=== PATIENT | female | born 1985 | race Caucasian/White ===

== ENCOUNTER 2023-10-10 08:55 | Day surgery (SDC) | payer OTHER ==
[~2023-10-10] VITALS: Ht 167.6 cm; Wt 113.0 kg
[~2023-10-10 08:55] MED LIST: CYCLOBENZAPRINE10 MG PO; NORCO 5-325 TA1 EACH PO
[2023-10-10 09:38] LABS: BILIRUBIN, URINE NEGATIVE (negative); BLOOD/HGB, URINE NEGATIVE (Negative); KETONE, URINE NEGATIVE (Negative); LEUK ESTERASE, URINE TRACE (negative); NITRITE, URINE NEGATIVE (negative)
[2023-10-10 09:39] LABS: BASOPHILS 0.3 % (0-2); EOSINOPHILS 2.8 % (0-6); HEMATOCRIT 42.1 % (35.0-50.0); LYMPHOCYTES 20.2 % (24-44); MCH 30.4 (27-36); MCHC 33.3 g/dl (30-36); MCV 91.2 fl (81-99); MONOCYTES 4.3 % (0-12); NEUTROPHILS 72.4 % (39-80); PLATELET COUNT 445 K/uL (140-440); RBC 4.62 M/ul (4.3-5.7); RDW 13.3 (10.5-15.0)
[2023-10-10 10:01] LABS: ALBUMIN 3.5 g/dL (3.4-5.0); ALBUMIN/GLOBULIN RATIO 0.9 (1.1-2.4); ANION GAP 14.1 (7-21); BILIRUBIN, TOTAL 0.7 ng/dL (0.2-1.0); BUN/CREATININE RATIO 8.24 (6.0-28.6); CALCIUM 8.9 mg/dL (8.5-10.1); CREATININE, SERUM 0.97 mg/dL (0.55-1.02); POTASSIUM 4.1 mmol/L (3.5-5.1); PROTEIN, TOTAL 7.4 g/dL (6.4-8.2)
[2023-10-10 10:08] LABS: BACTERIA, URINE RARE /hpf (negative); CASTS, URINE NONE SEEN \\lpf; COLLECTION TYPE, URINE CLEAN CATCH; CRYSTALS, URINE NONE SEEN (0-1+); EPITHELIAL CELLS, URINE SQUAMOUS 1+ /lpf (0-1+); RED BLOOD CELLS, URINE 0-1 /hpf (0-5); REFLEX CULTURE, URINE No (No)
[2023-10-10 13:36] VITALS: BP 113/60
--- NOTE | 2023-10-10 13:56 | NUR ---
ADMITTED FROM [facility] PATENT ON MAITAINENCE PER PUMP. REVIEWED PROCEDURE FOR O R. STATES OK. AT BS WILL LEAVE WHEN SHE GOES TO O R.
--- NOTE | 2023-10-10 15:04 | NUR ---
1442- PT UP AND AMBULATED TO THE RESTROOM. TOLERATED WELL. PT REPORTS SHE IS PAINFUL. EDUCATED THAT ANETHESIA WOULD BE NOTIFIED. 1454- ANESTHESIA NOTIFIED OF PT'S PAIN. 1503- ANESTHESIA IN THE ROOM TO TALK WITH THE PT.
--- NOTE | 2023-10-10 15:48 | NUR ---
CHECKED PATIENT. PATIENT STATES PAIN IMPROVED. NO NEEDS AT THIS TIME. CALL LIGHT WITHIN REACH.
--- NOTE | 2023-10-10 16:01 | NUR ---
PT UPDATED ON WAIT TIME UNTIL SURGERY. PT AGREEABLE WITH THIS. CALL LIGHT PROVIDED AND TELEVISION TURNED ON. PT HAS NO FURTHER REQUESTS AT THIS TIME.
--- NOTE | 2023-10-10 17:07 | NUR ---
PT AND PT'S FAMILY UPDATED ON PLAN OF CARE AND WAIT UNTIL SURGERY. BOTH PARTIES UNDERSTANDING AND THANKFUL FOR THE UPDATE.
[2023-10-10 17:35] VITALS: BP 123/74
--- NOTE | 2023-10-10 17:35 | NUR ---
REPORT RECEIVED FROM PHUONG WHITE RN. PT SITTING UP IN BED. PT REPORTING NAUSEA AND PAIN. AWAITING FOR DR. ESQUIVEL TO PLACE ORDERS. PT DENIES ANY NEEDS AT THIS TIME. CALL LIGHT IN REACH.
--- NOTE | 2023-10-10 17:52 | NUR ---
173- REPORT GIVEN TO LIZZY LEY RN. ALL QUESTIONS ANSWERED. EDUCATED THE PT HAS RECEIVED HEPARIN, PEPCID, AND OTHER MEDICATIONS PROVIDED THROUGHOUT HER STAY. PT ABLE TO STAND AND AMBULATE INTO THE HOSPITAL BED. PT REPORTS NO DIZZINESS WITH THIS. PT PROVIDED CALL LIGHT, BED IN THE LOWEST POSITION, BED RAILS UP X2, BED PLUGGED IN. PT'S BELONGINGS ARE HOME WITH THE PT'S . 174- DR. ESQUIVEL CONTACTED FOR ORDERS THE PT IS REPORTING SOME NAUSEA AND PAIN FROM MOVEMENT INTO THE HOSPITAL BED. DR. ESQUIVEL STATES HE WILL PUT ORDERS IN. HARVEST WORKER AWARE.
--- NOTE | 2023-10-10 18:08 | NUR ---
IN TO ROUND ON PT. PT SITTING UP IN BED. PT REPORTING NAUSEA. HOT PACK PROVIDED TO ABD PAIN. LIGHTS TURNED DOWN FOR COMFORT. PT DENIES ANY OTHER NEEDS AT THIS TIME. CALL LIGHT IN REACH.
--- NOTE | 2023-10-10 18:26 | NUR ---
IN TO ADMINISTER PRN NAUSEA MEDICATION AND PRN PAIN MEDICATION. PT REPORTING PAIN 3/10 AT UMBILICUS. ASSESSMENT COMPLETE. LUNG SOUNDS CLEAR. BOWEL TONES ACTIVE. PT REPORTS ABD TENDERNESS WITH PALPATION AT UMBILICUS. COOL CLOTH PROVIDED. PT DENIES ANY OTHER NEEDS AT THIS TIME. CALL LIGHT IN REACH.
--- NOTE | 2023-10-10 18:53 | NUR ---
SURGICAL NURSE HERE TO TAKE PT FOR PROCEDURE.
--- NOTE | 2023-10-10 19:35 | NUR ---
SHIFT REPORT RECEIVED FROM DAYSWAKARMA BALL, PER REPORT, pt RECENTLY TO OR FOR SURGERY. AWAITING pt's ARRIVAL BACK FROM PACU.
[2023-10-10] MEDS ORDERED: TYLENOL EXTRA500 MG PO (20:08)
[2023-10-10] MEDS ORDERED: MOTRIN IB200 MG PO (20:08)
[2023-10-10] MEDS ORDERED: PERCOCET 7.5-31 EACH PO (20:09)
--- NOTE | 2023-10-10 20:15 | NUR ---
10/10/23 2015 Gallwoay,Monika Santo 2006: PATIENT MEDICATED FOR PAIN WITH IV FENTANYL. 2012: DR. ESQUIVEL AT BEDSIDE TALKING WITH PATIENT.
--- NOTE | 2023-10-10 20:38 | NUR ---
pT BACK FROM PACU, PAIN TOLERABLE AT THIS TIME. BEDSIDE REPORT RECEIVED FROM COST COORDINATOR NITZA. pt AWAKE AND RESTING IN BED, GAG REFLEX NOTED. pt PROVIDED WITH CLEAR LIQUIDS AND JELLO-pt TOLERATING WELL. DENIES NAUSEA. ABD INCISION DRESSING C/D/I. IV SITE WNL, FLUSHES EASILY AND SALINE LOCKED. VSS, pt REMAINS ON ROOM AIR. SIG OTHER IN ROOM. NO ADDITIONAL NEEDS OR CONCERNS NOTED, POC DISCUSSED. pt VERBALIZES EAGERNESS TO GO HOME.
[2023-10-10 20:46] VITALS: BP 112/65
--- NOTE | 2023-10-10 21:33 | NUR ---
pt UP AND VOIDED 100MLS DARK YELLOW URINE, STEADY ON FEET AND BACK IN BED. ONE PERCOCET GIVEN FOR REPORTED 4/10 ABD PAIN NEAR INCISION. pT TOLERATING CLEAR LIQUID DIET, ADVANCED TO CRACKERS. DENIES NAUSEA. CALL LIGHT INR EACH.
[2023-10-10 21:42] VITALS: BP 96/82
--- NOTE | 2023-10-10 21:43 | NUR ---
UPDATE PROVIDED TO DR ESQUIVEL PER TELEPHONE, AWARE OF pt VOIDING 100MLS URINE AND PAIN TOLERABLE AND EATING/DRINKING W/O CONCERNS. pt HAS PRESCRIPTION FOR PAIN MEDICATION ON CHART-DISCUSSED POSSIBLE NEED FOR HOME PACK, STATES pt CAN USE OTC PAIN MEDICATION (TYLENOL/MOTRIN) DURING THE NIGHT pt WAS RECENTLY GIVEN A PERCOCET AND CAN HAVE THE PRESCRIPTION FILLED AT THE PHARMACY IN THE MORNING. WILL CONTINUE TO MONITOR, STATISTICS PROFESSORAIDE MACEDO PREPARING TO DISCHARGE pt.
[2023-10-10 22:13] VITALS: BP 114/78
--- NOTE | 2023-10-10 22:26 | NUR ---
DISCHARGE INSTRUCTIONS GIVEN TO PT, VS COMPLETED, IV DC'D INTACT. PERSCRIPTION GIVEN WELL. INSTRUCTED TO CALL DR ESQUIVEL OFFICE IN MORNING, SHE QUESTIONED A WORK RELEASE PAPER, ADVISED TO ASK OFFICE WELL. CURRENTLY BEING WHEELED OUTSIDE IN WHEELCHAIR, MALE WALKING BESIDE HERE, WIRE BASKET MAKER PUSHING CHAIR.
--- NOTE | 2023-10-11 18:06 | OR ---
[facility] [address], [place] [address] Signed DATE OF OPERATION: 10/10/2023 SURGEON: Matthew Esquivel MD PREOPERATIVE DIAGNOSES: 1. Incarcerated symptomatic supraumbilical hernia. 2. Morbid obesity. POSTOPERATIVE DIAGNOSES: 1. Incarcerated symptomatic supraumbilical hernia. 2. Morbid obesity. PROCEDURE: 1. Repair of incarcerated supraumbilical hernia fascial defect 2 cm. 2. Resection of portion of omentum (incarcerated ischemic and nonreducible). ANESTHESIA: General endotracheal, Cheri Tyshawn, EXECUTIVE ASSOCIATE and local 10 mL of 0.25% Marcaine with epinephrine. INDICATION: This 38-year-old morbidly obese white woman presented to the emergency room after two days of increasing abdominal pain, which was not well-localized initially. Evaluation by Dr. Anjel Barth in the emergency room included an ultrasound of the gallbladder. The gallbladder was found to be normal, however, inspection with the ultrasound confirmed a subcutaneous mass consistent with incarcerated umbilical hernia or supraumbilical hernia. The defect was considered to be slightly less than 2 cm. Clinical examination then affirmed marked tenderness at the supraumbilical area consistent with incarcerated hernia with probable properitoneal fat. The patient had nausea and vomiting previously and extreme pain and tenderness at this time. She has been fluid resuscitated, given intravenous antibiotic Ancef and is now to undergo repair of the hernia, possibly to include implantation of mesh. The risk of bleeding, infection, recurrence and so forth were reviewed in detail. She understands and wished to proceed. FINDINGS: Indeed there was incarceration of omentum. There was no evidence of hollow viscus incarceration. The fascial defect was about 2 cm. The hernia sac was excised revealing ischemic, so not infarcted omentum. It was vascular and friable and could not be Electronically Signed By: MATTHEW ESQUIVEL MD 10/11/23 1806 PATIENT NAME: ENDY BILLY OPERATIVE REPORT DATE OF : 89 REPORT #: [id number] PHYSICIAN: MATTHEW ESQUIVEL MD PCP: SARMAD HOLDEN PA-C REPORT IS CONFIDENTIAL AND NOT TO BE RELEASED WITHOUT AUTHORIZATION [facility] [address], [place] [address] Signed reduced effectively and on that basis, portion of omentum was excised. The fascia that remains was reasonably mena. Mesh implantation was deemed inadvisable. Primary closure transversely was undertaken with 2-0 Prolene suture in a vertical mattress configuration. DESCRIPTION OF PROCEDURE: The patient was brought to the operating room, given a general endotracheal anesthetic. Preoperative antibiotic Ancef was given. Sequential compression device stockings used and heparin subcutaneously administered. The abdomen was prepared with a chlorhexidine solution. As she does have an underlying history of hidradenitis suppurativa with a few small boil like lesions in the lower abdomen (not active, but burned out), an Ioban dressing was additionally applied. A supraumbilical incision was made and dissection carried through the skin and dermis with a 15 blade. Further dissection was undertaken with electrocautery. The edematous subcutaneous fatty tissue was noted. A hernia was freed from the surrounding soft tissue ultimately identifying the fascial defect, which was at or above the umbilicus proper. Freeing of the hernia sac from the surrounding fascia was undertaken with electrocautery. The tissue was friable. The hernia sac was incised revealing the contents, which we which was proven to be omentum without sign of hollow viscus. Attempts at reduction of the omentum were unsuccessful and on that basis, sequential application of hemostats to the root of the incarcerated omentum was undertaken amputating the omentum and passed for pathology. The pedicles were then secured with 2-0 silk ties. This allowed for complete evaluation of the fascial defect, which was about 2 cm slightly left possibly. It was deemed most advisable to simply close the fascia as it was mena rather than implant Prolene mesh, particularly under the circumstances of her inflammation and other factors. The fascia was reapproximated transversely with interrupted 2-0 Prolene suture in a vertical mattress configuration. Good closure of the wound was undertaken. A 10 mL of 0.25% Marcaine with epinephrine was injected locally. Irrigation was undertaken in Laurel's layer reapproximated with interrupted 2-0 Vicryl and the skin closed with a running subcuticular 3-0 Vicryl. Steri-Strips were applied as was an Acticoat dressing. The patient was ultimately extubated and transferred to the recovery room in good condition having suffered no known complications. Sponge, needle, and instrument counts reported as correct x3. Matthew Esquivel MD /ROSIOL /[id number] Electronically Signed By: MATTHEW ESQUIVEL MD 10/11/23 1806 PATIENT NAME: ENDY BILLY OPERATIVE REPORT DATE OF : 89 REPORT #: [id number] PHYSICIAN: MATTHEW ESQUIVEL MD PCP: SARMAD HOLDEN PA-C REPORT IS CONFIDENTIAL AND NOT TO BE RELEASED WITHOUT AUTHORIZATION [address] [place] [address] Signed cc: TAMIE Daniel MD Copies: SARMAD HOLDEN PA-C, WILLIAM S MD ~ Electronically Signed By: MATTHEW ESQUIVEL MD 10/11/23 1806 PATIENT NAME: ENDY BILLY OPERATIVE REPORT DATE OF : 89 REPORT #: [id number] PHYSICIAN: MATTHEW ESQUIVEL MD PCP: SARMAD HOLDEN PA-C REPORT IS CONFIDENTIAL AND NOT TO BE RELEASED WITHOUT AUTHORIZATION
--- NOTE | 2023-10-11 18:06 | HP ---
[facility] [address] [place], [place] [address] Signed ADMISSION DATE: 10/10/2023 REASON FOR ADMISSION: Incarcerated symptomatic umbilical hernia. HISTORY OF PRESENT ILLNESS: This morbidly obese 38-year-old white woman has had at least two days of nausea, vomiting, and significant abdominal pain. She was evaluated by Dr. Hargrove and found to have vague abdominal tenderness and findings unclear as to the source of the problem. On that basis, an abdominal ultrasound was performed which showed no evidence of gallbladder problem, specifically no cholelithiasis or cholecystitis, a mildly enlarged liver and a small fat containing abdominal hernia superior to the umbilicus. Re-examination confirmed this to be the most maximally tender aspect of the abdomen. There is a small amount of fluid within the hernia. The defect of the abdominal wall was approximately 1.4 cm in diameter. The abnormalities found to be completely unreducible. PAST MEDICAL HISTORY: Notable for at age 17, but no other operative interventions have been undertaken. Other medical problems include obesity. She takes no medications on a routine basis nor does she have allergies. 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 She has one daughter 12 years of age and her attends to her at this time. They live in [place]. REVIEW OF SYSTEMS: She denies any shortness of breath or chest pain. She has had no dysphagia or dysuria. Denies any hematemesis or blood per rectum, but she has had a fair amount of nausea and vomiting. PHYSICAL EXAMINATION: GENERAL: This is a pleasant white woman who looks to be in no acute distress. HEENT: Mucous membranes are slightly dry. NECK: Trachea is midline. CHEST: Clear. HEART: Regular without murmur. ABDOMEN: Quite obese, but soft. There is marked tenderness at the supraumbilical area and a small mass is noted which is nonreducible. EXTREMITIES: Show no clubbing, cyanosis, or edema. Electronically Signed By: MATTHEW ESQUIVEL MD 10/11/23 1806 PATIENT NAME: ENDY BILLY HISTORY AND PHYSICAL DATE OF : 89 REPORT #: [id number] PHYSICIAN: MATTHEW ESQUIVEL MD PCP: SARMAD HOLDEN PA-C REPORT IS CONFIDENTIAL AND NOT TO BE RELEASED WITHOUT AUTHORIZATION [facility] [address] [place], [place] [address] Signed ASSESSMENT: The patient has an incarcerated supraumbilical hernia with incarcerated omental fat, most likely. This is very tender and has been going on for several days. She has had nausea and vomiting associated with this. Notably, she has had no oral intake for at least 48 hours. She has a Hep-Lock in place and IV fluid will be initiated. I have recommended repair at this time. This would include reduction of the hernia, possibly resection of the incarcerated omental fat if nonviable or reduction of hollow viscus if that is the finding. She may require implantation of Prolene mesh. Notably, she does have an underlying diagnosis of hidradenitis suppurativa, which has affected her axilla, inframammary creases and perineum but shows no sign of abnormality in the area of the umbilicus itself. She does have a few excoriations of skin on the lower abdominal wall. The risk of bleeding, infection, need for implantation of mesh, recurrence, and other unforeseen complications was reviewed with her in detail. She understands and wished to proceed. PLAN: We will plan to proceed with operation today and likely she will be able to be discharged today as well. Matthew Esquivel MD /ROSIOL /[id number] cc: TAMIE Daniel MD Copies: SARMAD HOLDEN PA-C Electronically Signed By: MATTHEW ESQUIVEL MD 10/11/23 1806 PATIENT NAME: ENDY BILLY HISTORY AND PHYSICAL DATE OF : 89 REPORT #: [id number] PHYSICIAN: MATTHEW ESQUIVEL MD PCP: SARMAD HOLDEN PA-C REPORT IS CONFIDENTIAL AND NOT TO BE RELEASED WITHOUT AUTHORIZATION [facility] [address] [place] [id number] Signed VALERY HARGROVE MD ~ Electronically Signed By: MATTHEW ESQUIVEL MD 10/11/23 1806 PATIENT NAME: ENDY BILLY HISTORY AND PHYSICAL DATE OF : 89 REPORT #: [id number] PHYSICIAN: MATTHEW ESQUIVEL MD PCP: SARMAD HOLDEN PA-C REPORT IS CONFIDENTIAL AND NOT TO BE RELEASED WITHOUT AUTHORIZATION
== END 2023-10-10 22:33 | disposition home or self-care (01) ==
LOC: ED 08:55 → DSVR 13:03 → DS 13:03 → MS 17:47 → DS 22:33
PROVIDERS: Emergency Medicine; ATTEND Surgery
PROC: 0WQF0ZZ Repair Abdominal Wall, Open Approach (ICD-10-PCS; principal; 2023-10-10 14:45)
DX: K43.6 Other and unspecified ventral hernia with obstruction, without gangrene (principal)
CPT/HCPCS: 00832; 36415; 76705; 80053; 81001; 83690; 84703; 85025; C1781; J0690; J1100; J1170; J1644; J1885; J2250; J2405; J2704; J3010; J3490; J7030

== ENCOUNTER 2024-12-24 06:36 | Emergency (ER) | payer BC ==
[~2024-12-24] VITALS: Ht 167.6 cm; Wt 111.4 kg
[~2024-12-24 06:36] MED LIST changes: +MOTRIN IB200 MG PO; +PERCOCET 7.5-31 EACH PO; +TYLENOL EXTRA500 MG PO
[2024-12-24] MEDS ORDERED: BENADRYL ALLERG25 MG PO (06:44)
[2024-12-24] MEDS ORDERED: CLEOCIN HCL300 MG PO (07:55)
[2024-12-24 07:58] VITALS: BP 131/88
== END 2024-12-24 07:58 | disposition home or self-care (01) ==
LOC: ED 06:36
DX: J02.9 Acute pharyngitis, unspecified (principal); F17.200 Nicotine dependence, unspecified, uncomplicated; Z79.899 Other long term (current) drug therapy
CPT/HCPCS: 87651; 99283